=== PATIENT | male | born 1980 | race Caucasian/White ===

== ENCOUNTER 2017-11-03 17:52 | Emergency (ER) | payer OTHER ==
[~2017-11-03] VITALS: Ht 177.8 cm; Wt 70.3 kg
[~2017-11-03 17:52] MED LIST: HYDROCODON-ACE1 EAC7 PO; NOHOMEMEDICATIONS
[2017-11-03] MEDS ORDERED: NAPROSYN500 MG PO (19:04)
[2017-11-03 19:40] VITALS: BP 134/80
== END 2017-11-03 19:40 | disposition home or self-care (01) ==
LOC: M.ERS 17:52
DX: S96.812A Strain of other specified muscles and tendons at ankle and foot level, left foot, initial encounter (principal); F17.210 Nicotine dependence, cigarettes, uncomplicated; Z88.8 Allergy status to other drugs, medicaments and biological substances; W18.39XA Other fall on same level, initial encounter; Y93.89 Activity, other specified; Y92.89 Other specified places as the place of occurrence of the external cause; Y99.8 Other external cause status

== ENCOUNTER 2019-04-22 22:33 | Emergency (ER) | payer OTHER ==
[~2019-04-22] VITALS: Ht 175.3 cm; Wt 63.0 kg
[~2019-04-22 22:33] MED LIST changes: +NAPROSYN500 MG PO
[2019-04-23 00:27] VITALS: BP 106/53
== END 2019-04-23 00:29 | disposition home or self-care (01) ==
LOC: M.ERS 22:33
DX: F10.129 Alcohol abuse with intoxication, unspecified (principal); Z88.8 Allergy status to other drugs, medicaments and biological substances; Y90.8 Blood alcohol level of 240 mg/100 ml or more

== ENCOUNTER 2020-02-16 12:26 | Emergency (ER) | payer OTHER ==
[~2020-02-16] VITALS: Ht 175.3 cm; Wt 65.8 kg
[2020-02-16 13:34] LABS: ABSOLUTE BASOPHILS 0.1 thou/uL (0.0-0.2); ABSOLUTE EOSINOPHILS 0.4 thou/uL (0.0-0.7); ABSOLUTE LYMPHOCYTES 2.5 thou/uL (0.8-5.3); ABSOLUTE MONOCYTES 0.6 thou/uL (0.0-1.2); ABSOLUTE NEUTROPHILS 4.6 thou/uL (1.6-8.1); BASOPHILS 1.3 %; EOSINOPHILS 5.3 %; HEMATOCRIT 45.8 % (42.0-52.0); HEMOGLOBIN 15.8 gm/dL (14.0-18.0); LYMPHOCYTES 30.1 %; MCH 32.3 pg (26.0-34.0); MCHC 34.5 g/dL (28.0-37.0); MCV 93.6 fL (80.0-100.0); MONOCYTES 7.4 %; MPV 7.1 fl. (7.2-11.1); NUCLEATED RBCS 0 /100WBC; PLATELET COUNT* 332 thou/uL (150-400); POLYS 55.9 %; RDW-CV 14.8 % (10.5-14.5); WBC 8.3 thou/uL (4.0-11.0)
[2020-02-16 13:45] LABS: CALCIUM 8.6 mg/dL (8.5-10.1); POTASSIUM 4.8 mmol/L (3.5-5.1)
[2020-02-16 13:55] LABS: TOTAL BILIRUBIN 0.4 mg/dL (<0.1-1.0); TOTAL PROTEIN 7.7 g/dL (6.4-8.2)
[2020-02-16] MEDS ORDERED: DOXYCYCLINE 10100 M2 PO (14:07)
[2020-02-16] MEDS ORDERED: NEURONTIN100 MG PO (14:07)
[2020-02-16 14:21] VITALS: BP 139/72
== END 2020-02-16 14:22 | disposition home or self-care (01) ==
LOC: M.ERS 12:26
PROVIDERS: Physician Assistant
DX: J32.2 Chronic ethmoidal sinusitis (principal); M79.2 Neuralgia and neuritis, unspecified; K02.9 Dental caries, unspecified; Z88.8 Allergy status to other drugs, medicaments and biological substances

== ENCOUNTER 2020-02-25 09:16 | Emergency (ER) | payer OTHER ==
[~2020-02-25] VITALS: Ht 175.3 cm; Wt 68.0 kg
[~2020-02-25 09:16] MED LIST changes: +DOXYCYCLINE 10100 M2 PO; +NEURONTIN100 MG PO
[2020-02-25] MEDS ORDERED: PREDNISONE 20 M20 M1 PO (10:04)
[2020-02-25] MEDS ORDERED: NORCO 5-325 TA1 EAC2 PO (10:04)
[2020-02-25] MEDS ORDERED: AMOXICILLIN 50500 MG PO (10:04)
[2020-02-25 10:07] VITALS: BP 136/72
== END 2020-02-25 10:08 | disposition home or self-care (01) ==
LOC: M.ERS 09:16
DX: J32.1 Chronic frontal sinusitis (principal); J32.0 Chronic maxillary sinusitis; Z20.828 Contact with and (suspected) exposure to other viral communicable diseases; Z88.8 Allergy status to other drugs, medicaments and biological substances

== ENCOUNTER 2020-07-04 18:57 | Emergency (ER) | payer OTHER ==
[~2020-07-04] VITALS: Ht 177.8 cm; Wt 72.6 kg
[~2020-07-04 18:57] MED LIST changes: +AMOXICILLIN 50500 MG PO; +NORCO 5-325 TA1 EAC2 PO; +PREDNISONE 20 M20 M1 PO
[2020-07-04] MEDS ORDERED: CIPROFLOXIN HC2.5 M1 OPHTHALMIC ×2 (19:36→19:38)
[2020-07-04 19:46] VITALS: BP 142/65
== END 2020-07-04 19:46 | disposition home or self-care (01) ==
LOC: M.ERS 18:57
DX: T15.82XA Foreign body in other and multiple parts of external eye, left eye, initial encounter (principal); Z88.8 Allergy status to other drugs, medicaments and biological substances; X58.XXXA Exposure to other specified factors, initial encounter; Y93.89 Activity, other specified; Y92.89 Other specified places as the place of occurrence of the external cause; Y99.8 Other external cause status

== ENCOUNTER 2021-01-15 13:14 | Emergency (ER) | payer OTHER ==
[~2021-01-15] VITALS: Ht 177.8 cm; Wt 63.5 kg
[~2021-01-15 13:14] MED LIST changes: +CIPROFLOXIN HC2.5 M1 OPHTHALMIC
[2021-01-15] MEDS ORDERED: ABILIFY10 MG PO (13:26)
[2021-01-15] MEDS ORDERED: FLEXERIL PO (14:06)
[2021-01-15] MEDS ORDERED: APAP W/CODEINE1 TA2 PO (14:06)
[2021-01-15] MEDS ORDERED: MEDROLDOSEPACK PO (14:06)
[2021-01-15 14:23] VITALS: BP 144/88
== END 2021-01-15 14:24 | disposition home or self-care (01) ==
LOC: M.ERS 13:14
DX: M54.50 Low back pain, unspecified (principal); F17.210 Nicotine dependence, cigarettes, uncomplicated; Z98.890 Other specified postprocedural states; Z79.899 Other long term (current) drug therapy; Z88.8 Allergy status to other drugs, medicaments and biological substances; Z88.0 Allergy status to penicillin